=== PATIENT | female | born 1995 | race African-American/Black ===

== ENCOUNTER 2022-04-28 12:38 | Emergency (ER) | payer SELFPAY ==
--- NOTE | 2022-04-28 13:02 | NUR ---
CALLED TO TRIAGE,NO ANSWER
--- NOTE | 2022-04-28 14:17 | NUR ---
MULTIPLE CALL TO ED WAITING ROOM. NO RESPONSE PATIENT LEFT WITHOUT BEING TRIAGED
== END 2022-04-28 14:19 | disposition left against medical advice (07) ==
LOC: ER 12:40
DX: Z53.21 Procedure and treatment not carried out due to patient leaving prior to being seen by health care provider (principal)

== ENCOUNTER 2023-08-11 21:10 | Emergency (ER) | payer MEDICAID, OTHER ==
[~2023-08-11] VITALS: Ht 172.7 cm; Wt 52.2 kg
[2023-08-12] MEDS ORDERED: dexaMETHasone SOD PHOSPHATE 1 ML ONE (00:09)
[2023-08-12] MEDS ORDERED: ACETAMINOPHEN ES 500 MG TABLET ONE (00:09)
[2023-08-12] MEDS: dexaMETHasone SOD PHOSPHATE 10 MG/ML VIAL MC ONE (00:20)
[2023-08-12] MEDS: ACETAMINOPHEN ES 500 MG TABLET PO ONE (00:20)
[2023-08-12] MEDS ORDERED: ACET-2605 PO (01:20)
[2023-08-12] MEDS ORDERED: GUAI-425 PO (01:20)
[2023-08-12] MEDS ORDERED: IBUP-1955 PO (01:20)
[2023-08-12 01:40] VITALS: BP 110/73; TEMP 98.7; O2SAT 98
== END 2023-08-12 01:40 | disposition home or self-care (01) ==
LOC: ER 21:19
DX: J02.9 Acute pharyngitis, unspecified (principal); Z20.822 Contact with and (suspected) exposure to COVID-19
CPT/HCPCS: 99284; 71045; 87426; 87804 ×2; 87070; 87880; J1100; 86403-TC